=== PATIENT | male | born 1945 | race Native Hawaiian/Other Pacific Islander ===

== ENCOUNTER 2016-08-01 14:28 | Inpatient (IN) | payer OTHER, MEDICAID ==
[2016-07-20 06:32] VITALS: BMI 30.7
[2016-08-01] MEDS ORDERED: Oxycodone/Acetaminophen 5/325 mg Tab PO PRN (22:18)
[2016-08-02] MEDS ORDERED: Benzocaine/Menthol (Cepacol) Lozenge PO PRN (00:16)
[2016-08-02] MEDS ORDERED: Meropenem 1 GM/NS 100 ML IVPB ONE (01:00)
[2016-08-02] MEDS ORDERED: Patient's Own Med (Meropenem [Merrem Iv] 1 GM) IVPB SCH (01:00)
[2016-08-02] MEDS: Albuterol-Ipratrop 3 mg / 0.5 (3 ml) UD INH SCH ×4 (01:03→19:26)
[2016-08-02] MEDS: Piperacillin/Tazobact 3.375 GM in Sodium Chloride 0.9% 100 ML IVPB SCH ×2 (04:54→13:05)
[2016-08-02 08:21] VITALS: RESP 20
[2016-08-02] MEDS: Potassium Chloride 20 mEq ER Tab PO SCH (08:27)
[2016-08-02] MEDS: Meropenem 1 GM/NS 100 ML IVPB SCH ×2 (08:28→17:16)
--- NOTE | 2016-08-02 14:17 | CP.PCM.CON ---
History of Present Illness - History of Present Illness History of Present Illness: 71 yo male with hx of HTN HLD is admitted to TCU for continuation of rx for pneumonia and PT/OT for deconditioning recently had subtotal colectomy at for Ca Colon - hospital course complicated by wound dehissence fever and pneumonia sputum + Enterobacter Originally started on zosyn but kept spiking and was switched to Vanco Merrem followed by prompt defervescence SPUTUM c/S CAME BACK + FOR ENTEROBACTER Review of Systems - Constitutional Constitutional: As Per HPI, Fever - EENT Eyes: absent: As Per HPI, Blind Spots, Blurred Vision, Change in Vision, Decreased Night Vision, Diplopia, Discharge, Dry Eye, Exophthalmos, Floaters, Irritation, Itchy Eyes, Loss of Peripheral Vision, Pain, Photophobia, Requires Corrective Lenses, Sees Flashes, Spots in Vision, Tunnel Vision, Other Visual Disturbances, Loss of Vision, Other Ears: absent: As Per HPI, Decreased Hearing, Ear Discharge, Ear Pain, Tinnitus, Abnormal Hearing, Disequilibrium, Dizziness, Other Nose/Mouth/Throat: absent: As Per HPI, Epistaxis, Nasal Congestion, Nasal Discharge, Nasal Obstruction, Nasal Trauma, Nose Pain, Post Nasal Drip, Sinus Pain, Sinus Pressure, Bleeding Gums, Change in Voice, Dental Pain, Dry Mouth, Dysphagia, Halitosis, Hoarsness, Lip Swelling, Mouth Lesions, Mouth Pain, Odynophagia, Sore Throat, Throat Swelling, Tongue Swelling, Facial Pain, Neck Pain, Neck Mass, Other - Cardiovascular Cardiovascular: absent: As Per HPI, Acrocyanosis, Chest Pain, Chest Pain at Rest , Chest Pain with Activity, Claudication, Diaphoresis, Dyspnea, Dyspnea on Exertion, Edema, Irregular Heart Rhythm, Pain Radiating to Arm/Neck/Jaw, Leg Edema, Leg Ulcers, Lightheadedness, Orthopnea, Palpitations, Paroxysmal Nocturnal Dyspnea, Pedal Edema, Radiating Pain, Rapid Heart Rate, Slow Heart Rate, Syncope, Other - Respiratory Respiratory: As Per HPI - Gastrointestinal Gastrointestinal: As Per HPI, Change in Bowel Habits - Genitourinary Genitourinary: absent: As Per HPI, Change in Urinary Stream, Difficulty Urinating, Dysuria, Flank Pain, Hematuria, Pyuria, Nocturia, Urinary Incontinence, Urinary Frequency, Urinary Hesitance, Urinary Urgency, Voiding Freq/Small Amts, Freq UTI, Hx Renal/Bladder Calculi, Hx /Renal Surgery, Bladder Distension, Other - Musculoskeletal Musculoskeletal: absent: As Per HPI, Abnormal Gait, Arthralgias, Atrophy, Back Pain, Deformity, Joint Swelling, Limited Range of Motion, Loss of Height, Muscle Cramps, Muscle Weakness, Myalgias, Neck Pain, Numbness, Radiating Pain into Limb, Stiffness, Tingling, Other - Integumentary Integumentary: absent: As Per HPI, Acne, Alopecia, Bleeding Lesions, Change in Hair, Change in Nails, Change in Pigmentation, Changing Lesions, Dry Skin, Erythema, Furuncle, Hirsutism, Lesions, New Lesions, Non-Healing Lesions, Photosensitivity, Pruritus, Rash, Skin Pain, Skin Ulcer, Sores, Striae, Swelling , Unusual Bruising, Wounds, Jaundice, Other - Neurological Neurological: absent: As Per HPI, Abnormal Gait, Abnormal Hearing, Abnormal Movements, Abnormal Speech, Behavioral Changes, Burning Sensations, Confusion, Convulsions, Disequilibrium, Dizziness, Numbness, Focal Weakness, Frequent Falls , Headaches, Lack of Coordination, Loss of Vision, Memory Loss, Paresthesias, Radicular Pain, Restless Legs, Sensory Deficit, Syncope, Tingling, Tremor, Vertigo, Weakness, Other Visual Disturbances, Other - Psychiatric Psychiatric: absent: As Per HPI, Abnormal Sleep Pattern, Anhedonia, Anxiety, Auditory Hallucinations, Behavioral Changes, Change in Appetite, Change in Libido, Confusion, Depression, Difficulty Concentrating, Hallucinations, Homicidal Ideation, Hopelessness, Irritability, Memory Loss, Mood Swings, Panic Attacks, Paranoia, Suicidal Ideation, Visual Hallucinations, Tactile Hallucinations, Other - Endocrine Endocrine: absent: As Per HPI, Change in Body Appearance, Change in Libido, Cold Intolorance, Deepening of Voice, Excessive Sweating, Fatigue, Flushing, Heat Intolorance, Increase in Ring/Shoe/Hat Size, Palpitations, Polydipsia, Polyphagia, Polyuria, Other - Hematologic/Lymphatic Hematologic: absent: As Per HPI, Easy Bleeding, Easy Bruising, Lymphadenopathy, Other Past Patient History - Past Medical History & Family History Past Medical History?: Yes - Past Social History Smoking Status: Never Smoked - CARDIAC Hx Hypercholesterolemia: Yes Hx Hypertension: Yes - PULMONARY Hx Respiratory Disorders: No Hx Pneumonia: Yes - NEUROLOGICAL Hx Neurological Disorder: No - HEENT Hx HEENT Problems: Yes Hx Cataracts: Yes - RENAL Hx Chronic Kidney Disease: No - ENDOCRINE/METABOLIC Hx Endocrine Disorders: No - HEMATOLOGICAL/ONCOLOGICAL Hx Blood Disorders: Yes Hx AIDS: No Hx Cancer: Yes (COLON) Hx Human Immunodeficiency Virus (HIV): No - INTEGUMENTARY Hx Dermatological Problems: No - MUSCULOSKELETAL/RHEUMATOLOGICAL Hx Arthritis: Yes Hx Falls: No - GASTROINTESTINAL Hx Gastrointestinal Disorders: Yes Hx Bowel Surgery: Yes (colectomy) Hx Gastritis: Yes Other/Comment: COLON CANCER - GENITOURINARY/GYNECOLOGICAL Hx Genitourinary Disorders: No - PSYCHIATRIC Hx Psychophysiologic Disorder: No Hx Substance Use: No - SURGICAL HISTORY Hx Surgeries: Yes Hx Cataract Extraction: Yes (LEFT) Hx Open Reduction Internal Fixation: Yes (LEFT SHOULDER) Other/Comment: s/p excision right shoulder mass - ANESTHESIA Hx Anesthesia: Yes Hx Anesthesia Reactions: No Hx Malignant Hyperthermia: No Meds Allergies/Adverse Reactions: Allergies Allergy/AdvReac Type Severity Reaction Status Date / Time No Known Allergies Allergy Verified 04/19/13 09:27 - Medications Medications: Current Medications Albuterol/Ipratropium (Duoneb 3 Mg/0.5 Mg (3 Ml) Ud) 3 ml INH RQ6 COUNTS INCLUDE 234 BEDS AT THE [facility] Last Admin: 08/02/16 13:26 Dose: 3 ml Aspirin (Aspirin Chewable) 81 mg PO DAILY COUNTS INCLUDE 234 BEDS AT THE [facility] Last Admin: 08/02/16 08:26 Dose: 81 mg Atorvastatin Calcium (Lipitor) 10 mg PO DAILY@2100 COUNTS INCLUDE 234 BEDS AT THE [facility] Benzocaine/Menthol (Cepacol Sore Throat) 1 juanita PO Q2 PRN PRN Reason: Sore Throat Enalapril Maleate (Vasotec) 10 mg PO DAILY COUNTS INCLUDE 234 BEDS AT THE [facility] Last Admin: 08/02/16 08:27 Dose: 10 mg Famotidine (Pepcid) 20 mg PO BID COUNTS INCLUDE 234 BEDS AT THE [facility] Last Admin: 08/02/16 08:27 Dose: 20 mg Heparin Sodium (Porcine) (Heparin) 5,000 units SC Q12 COUNTS INCLUDE 234 BEDS AT THE [facility] PRN Reason: Protocol Last Admin: 08/02/16 08:27 Dose: 5,000 units Meropenem 1 gm/ Sodium (Chloride) 100 mls @ 100 mls/hr IVPB Q8 COUNTS INCLUDE 234 BEDS AT THE [facility] Last Admin: 08/02/16 08:28 Dose: 100 mls/hr Cefepime HCl 1 gm/ Sodium (Chloride) 100 mls @ 100 mls/hr IVPB Q12 COUNTS INCLUDE 234 BEDS AT THE [facility] Ondansetron HCl (Zofran Inj) 4 mg IVP Q4 PRN PRN Reason: Nausea/Vomiting Oxycodone/Acetaminophen (Percocet 5/325 Mg Tab) 1 tab PO Q6H PRN PRN Reason: Pain, moderate (4-7) Stop: 08/04/16 22:19 Potassium Chloride (K-Dur 20 Meq Er Tab) 20 meq PO DAILY COUNTS INCLUDE 234 BEDS AT THE [facility] Last Admin: 08/02/16 08:27 Dose: 20 meq Tamsulosin HCl (Flomax) 0.4 mg PO DAILY COUNTS INCLUDE 234 BEDS AT THE [facility] Last Admin: 08/02/16 08:27 Dose: 0.4 mg Physical Exam - Constitutional Appears: Non-toxic, Chronically Ill - Head Exam Head Exam: NORMOCEPHALIC - Eye Exam Eye Exam: PERRL. absent: Scleral icterus - ENT Exam ENT Exam: Mucous Membranes Dry - Neck Exam Neck exam: Negative for: Lymphadenopathy - Respiratory Exam Respiratory Exam: Decreased Breath Sounds, Rhonchi - Cardiovascular Exam Cardiovascular Exam: REGULAR RHYTHM, +S1, +S2 - GI/Abdominal Exam GI & Abdominal Exam: Diminished Bowel Sounds, Soft. absent: Tenderness - Rectal Exam Rectal Exam: Deferred - Exam Exam: NORMAL INSPECTION - Extremities Exam Extremities exam: Positive for: pedal pulses present. Negative for: calf tenderness, pedal edema, tenderness - Back Exam Back exam: absent: CVA tenderness (L), CVA tenderness (R), paraspinal tenderness - Neurological Exam Neurological exam: Alert, Oriented x3 - Psychiatric Exam Psychiatric exam: Normal Affect, Normal Mood - Skin Skin Exam: Dry, Intact Results - Vital Signs Recent Vital Signs: Last Vital Signs Temp 97.7 F 08/02/16 08:21 Pulse 88 08/02/16 08:21 Resp 20 08/02/16 08:21 BP 105/61 08/02/16 08:21 Pulse Ox 98 08/02/16 08:21 Assessment & Plan (1) Colon carcinoma Status: Acute (2) Pneumonia Status: Acute - Assessment and Plan (Free Text) Assessment: WILL SWITCH TO CEFEPIME MAY CONSIDER CIPRO PO ON DISCHARGE FOLLOW UP CXR CONT PT/OT WOUND CARE
[2016-08-02] MEDS: Cefepime 1 GM in Sodium Chloride 0.9% 100 ML IVPB SCH (22:00)
--- NOTE | 2016-08-02 22:53 | HP ---
HISTORY OF PRESENT ILLNESS: This is a 71-year-old [place] male with history of multiple medical pro blems, who was transferred from [facility] to transitional care unit at [facility] after an abdominal surgery for subtotal colectomy. The patient's surgery was complicated b y wound dehiscence as well as pneumonia. The patient had a another procedure for wound closure as we ll as he was started on IV antibiotics and was transferred to transitional care unit at [facility] for completion of IV antibiotic therapy as well as physical therapy . The patient denied to have any chest pain or shortness of breath. REVIEW OF SYSTEMS: Other review of systems is negative. ALLERGIES: No known allergy. HOME MEDICATIONS: Aspirin 81 mg daily, Pepcid 20 mg twice a day, enalapril 10 mg daily, atorvastatin 10 mg daily, Flomax 0.4 mg daily. PAST MEDICAL HISTORY: Hypertension, hypercholesterolemia, status post subtotal colectomy with compli cated postoperative course. SOCIAL HISTORY: No history of smoking, ETOH or substance abuse. FAMILY HISTORY: Not contributory. PHYSICAL EXAMINATION: GENERAL: The patient sitting on the bed, comfortable, not in cardiopulmonary distress. VITAL SIGNS: Blood pressure 108/58, temperature 98.1, respiratory rate 20, and pulse is 97. HEENT: Pupils equal, reactive to light. Normal-appearing mucosa of the conjunctivae, oropharyngeal and nasal membrane mucosa. NECK: Supple, no JVD, no carotid bruit, no lymph node, no thyromegaly. CHEST AND LUNGS: Bilateral symmetrical expansion, good air exchange, no rales, no rhonchi. CARDIOVASCULAR: PMI not localized. S1, S2. No additional sounds. ABDOMEN: Normoactive bowel sounds, no tenderness, no organomegaly, no masses. EXTREMITIES: No cyanosis, no clubbing, no edema. CENTRAL NERVOUS SYSTEM: Alert, awake, oriented x 2. No neurological deficits could be appreciated. ASSESSMENT: 1. Complicated postoperative course of subtotal colectomy. 2. Postoperative pneumonia. 3. Hypertension. 4. Hypercholesterolemia. PLAN: 1. Continue current IV antibiotics as per ID consultants. 2. ID consultation with Dr. Lagunas. 3. Resume the patient's home medications. We will monitor electrolytes and blood work. [facility] Elbert Ward MD cc: 167 TT: 08/02/2016 22:52:57 ln
[2016-08-03] MEDS: Albuterol-Ipratrop 3 mg / 0.5 (3 ml) UD INH SCH ×4 (01:14→19:24)
[2016-08-03] MEDS: Meropenem 1 GM/NS 100 ML IVPB SCH ×4 (01:59→20:56)
[2016-08-03 06:55] LABS: BASO # 0.1 K/uL (0.0-0.2); BASO % 0.8 % (0.0-2.0); EOS # 0.4 K/uL (0.0-0.7); EOS % 4.9 % (0.0-4.0); HEMATOCRIT 26.7 % (35.0-51.0); LYMPH # 1.8 K/uL (1.0-4.3); LYMPH % 19.7 % (20.0-40.0); MEAN CELL VOLUME 86.6 fl (80.0-94.0); MEAN CORPUSCULAR HEMOGLOBIN 28.2 pg (27.0-31.0); MEAN CORPUSCULAR HGB CONC 32.6 g/dL (33.0-37.0); MEAN PLATELET VOLUME 7.2 fl (7.2-11.7); MONO # 0.9 K/uL (0.0-0.8); MONO % 10.2 % (0.0-10.0); NEUT # 5.7 K/uL (1.8-7.0); NEUT % 64.4 % (50.0-75.0); RED CELL DISTRIBUTION WIDTH 14.8 % (11.5-14.5); WHITE BLOOD COUNT 8.9 K/uL (4.8-10.8)
[2016-08-03 07:06] LABS: ALB/GLOB RATIO 1.1 (1.0-2.1); ALKALINE PHOSPHATASE 116 U/L (38-126); ALT/SGPT 60 U/L (21-72); AST/SGOT 47 U/L (17-59); BILIRUBIN,TOTAL 0.5 mg/dl (0.2-1.3); BLOOD UREA NITROGEN 8 mg/dl (9-20); CALCIUM 8.3 mg/dL (8.4-10.2); CARBON DIOXIDE 24 mmol/L (22-30); CHLORIDE 104 mmol/L (98-107); GFR AFRICAN-AMERICAN > 60; GLUCOSE,RANDOM 124 mg/dL (75-110); SODIUM 136 mmol/l (132-148); TOTAL PROTEIN 5.7 G/DL (6.3-8.2)
[2016-08-03] MEDS: Potassium Chloride 20 mEq ER Tab PO SCH (08:16)
[2016-08-03] MEDS: Cefepime 1 GM in Sodium Chloride 0.9% 100 ML IVPB SCH ×2 (08:30→17:23)
[2016-08-03] MEDS ORDERED: Hydrogen Peroxide 3% Soln (480ml) TP ONE (18:14)
--- NOTE | 2016-08-03 18:55 | PN ---
DATE: 08/03/2016 SUBJECTIVE: The patient is seen today 08/03/2016. He is not in any cardiopulmonary distress. PHYSICAL EXAMINATION: VITAL SIGNS: Blood pressure 114/59, temperature 97.7, respiratory rate 20, and pulse is 94. HEENT: Pupils equal, reactive to light. Normal-appearing mucosa of the conjunctivae, oropharyngeal and nasal membrane mucosa. NECK: Supple, no JVD, no carotid bruit, no lymph node, no thyromegaly. CHEST AND LUNGS: Bilateral symmetrical expansion, good air exchange, no rales, no rhonchi. CARDIOVASCULAR: PMI not localized. S1, S2. No additional sounds. ABDOMEN: Normoactive bowel sounds, no tenderness, no organomegaly, no masses. EXTREMITIES: No cyanosis, no clubbing, no edema. CENTRAL NERVOUS SYSTEM: Alert, awake, oriented x 2. No neurological deficits could be appreciated. ASSESSMENT: Status post subtotal colectomy with postoperative surgical wound dehiscence, as well as pneumonia. PLAN: Continue current IV antibiotics. Discussed the patient with Dr. Mcgowan who performed the ortiz rgery and he advised to change surgical wound every other day with hydrogen peroxide and normal salin e. Same orders were given. Continue current management. Stephanie Ward MD cc: 167 TT: 08/03/2016 18:55:30 Confirmation # [id number] Dictation # [id number]
[2016-08-04] MEDS: Albuterol-Ipratrop 3 mg / 0.5 (3 ml) UD INH SCH ×4 (01:00→20:30)
[2016-08-04] MEDS: Cefepime 1 GM in Sodium Chloride 0.9% 100 ML IVPB SCH ×2 (04:36→17:09)
[2016-08-04] MEDS: Meropenem 1 GM/NS 100 ML IVPB SCH ×3 (04:38→21:50)
[2016-08-04] MEDS: Potassium Chloride 20 mEq ER Tab PO SCH (08:00)
[2016-08-05] MEDS: Albuterol-Ipratrop 3 mg / 0.5 (3 ml) UD INH SCH ×4 (01:17→19:44)
[2016-08-05] MEDS: Meropenem 1 GM/NS 100 ML IVPB SCH ×3 (04:11→20:56)
[2016-08-05] MEDS: Cefepime 1 GM in Sodium Chloride 0.9% 100 ML IVPB SCH ×2 (05:18→16:32)
[2016-08-05] MEDS: Potassium Chloride 20 mEq ER Tab PO SCH (08:15)
--- NOTE | 2016-08-05 16:58 | RAD ---
HISTORY: follow up COMPARISON: No prior. TECHNIQUE: Chest PA and lateral FINDINGS: LUNGS: No active pulmonary disease. PLEURA: No significant pleural effusion identified. No pneumothorax apparent. CARDIOVASCULAR: No radiographic findings to suggest acute or significant cardiovascular disease. OSSEOUS STRUCTURES: Orthopedic hardware traversing the clavicular left fracture VISUALIZED UPPER ABDOMEN: Normal. OTHER FINDINGS: None. IMPRESSION: No active disease.
--- NOTE | 2016-08-05 23:56 | PN ---
DATE: 08/05/2016 SUBJECTIVE: The patient is seen today, 08/05/2016. He is not in any cardiopulmonary distress. PHYSICAL EXAMINATION: VITAL SIGNS: The patient is afebrile with a blood pressure of 130/70, temperature 97.7, respiratory rate 20, and pulse 90. HEENT: Pupils equal, reactive to light. Normal-appearing mucosa of the conjunctivae, oropharyngeal, and nasal membrane mucosa. NECK: Supple. No JVD. No carotid bruit. No lymph node. No thyromegaly. CHEST AND LUNGS: Bilateral symmetrical expansion, good air exchange. No rales. No rhonchi. CARDIOVASCULAR: PMI not localized. S1, S2. No additional sounds. ABDOMEN: Normoactive bowel sounds. No tenderness. No organomegaly. No masses. EXTREMITIES: No cyanosis. No clubbing. No edema. CENTRAL NERVOUS SYSTEM: Alert, awake, oriented x 2. No neurological deficits could be appreciated. 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 PLAN: Continue current medications and antibiotics as per ID. Continue physical therapy and deep venous thrombosis prophylaxis. Stephanie Ward MD cc: 167 TT: 08/05/2016 23:56:13 Confirmation # [id number] Dictation # [id number] [id number]
[2016-08-06] MEDS: Albuterol-Ipratrop 3 mg / 0.5 (3 ml) UD INH SCH ×4 (00:59→19:18)
[2016-08-06] MEDS: Meropenem 1 GM/NS 100 ML IVPB SCH ×3 (05:07→20:18)
[2016-08-06] MEDS: Cefepime 1 GM in Sodium Chloride 0.9% 100 ML IVPB SCH ×2 (05:08→17:00)
[2016-08-06] MEDS: Potassium Chloride 20 mEq ER Tab PO SCH (08:08)
[2016-08-07] MEDS: Albuterol-Ipratrop 3 mg / 0.5 (3 ml) UD INH SCH ×3 (01:00→13:43)
[2016-08-07] MEDS: Meropenem 1 GM/NS 100 ML IVPB SCH ×2 (04:19→12:26)
[2016-08-07] MEDS: Cefepime 1 GM in Sodium Chloride 0.9% 100 ML IVPB SCH (05:16)
[2016-08-07] MEDS: Potassium Chloride 20 mEq ER Tab PO SCH (08:37)
[2016-08-07 16:02] VITALS: BP 115/60; PULSE 100; TEMP 97.7; O2SAT 98
--- NOTE | 2016-08-10 09:09 | DS ---
REASON FOR ADMISSION: This is a -[id number]-blp male with a history of multiple medical problem s who was admitted to a subacute rehabilitation in the transitional care unit for completion of IV an tibiotic therapy and physical therapy. COURSE OF HOSPITALIZATION: The patient was continued on IV antibiotics as per ID telecommunications consultant, Dr. Bin wyman. The patient was cooperative to both physical therapy and occupational therapy and he did well a nd finished a course of antibiotics treating postoperative pneumonia. The patient went home in a sta ble condition to follow with his primary care physician and continue current medications. [facility] Elbert Ward MD cc: 167 TT: 08/07/2016 19:27:56 gian
== END 2016-08-07 16:09 | disposition home or self-care (01) | DRG 178 ==
LOC: H.TCU 20:30
PROVIDERS: ADMIT Internal Medicine; ATTEND Internal Medicine
PROC: F08Z4ZZ Home Management Treatment (ICD-10-PCS; principal; 2016-08-01)
PROC: F07Z9FZ Gait Training/Functional Ambulation Treatment using Assistive, Adaptive, Supportive or Protective Equipment (ICD-10-PCS; 2016-08-01)
PROC: F07L6ZZ Therapeutic Exercise Treatment of Musculoskeletal System - Lower Back / Lower Extremity (ICD-10-PCS; 2016-08-01)
PROC: 5A0955Z Assistance with Respiratory Ventilation, Greater than 96 Consecutive Hours (ICD-10-PCS; 2016-08-01)
DX: J15.6 Pneumonia due to other Gram-negative bacteria (principal); C18.5 Malignant neoplasm of splenic flexure; T81.31XA Disruption of external operation (surgical) wound, not elsewhere classified, initial encounter; I10 Essential (primary) hypertension; Z48.3 Aftercare following surgery for neoplasm; E78.5 Hyperlipidemia, unspecified; E78.00 Pure hypercholesterolemia, unspecified; Y83.6 Removal of other organ (partial) (total) as the cause of abnormal reaction of the patient, or of later complication, without mention of misadventure at the time of the procedure; D49.0 Neoplasm of unspecified behavior of digestive system